=== PATIENT | female | born 1985 ===

== ENCOUNTER 2016-05-25 06:05 | Day surgery (SDC) | payer MEDICAID ==
[2016-05-25 06:44] VITALS: O2SAT 100
[2016-05-25 06:51] VITALS: BMI 25.9
[2016-05-25] MEDS ORDERED: Lidocaine 4% (Laryng-O-Jet) Kit MM ONE (07:31)
[2016-05-25] MEDS ORDERED: Succinylcholine 200 mg/10 ml Inj IV ONE (07:31)
[2016-05-25] MEDS ORDERED: Propofol 10 mg/ml Inj (20 ML) ONE (07:31)
[2016-05-25] MEDS ORDERED: Midazolam 2 MG/2 ML VIAL ONE (07:31)
[2016-05-25 07:41] LABS: BASO % 0.6 % (0.0-2.0); EOS # 0.1 K/uL (0.0-0.7); EOS % 1.6 % (0.0-4.0); HEMATOCRIT 32.4 % (34.0-47.0); LYMPH # 1.9 K/uL (1.0-4.3); LYMPH % 34.5 % (20.0-40.0); MEAN CELL VOLUME 83.6 fl (81.0-99.0); MEAN CORPUSCULAR HEMOGLOBIN 27.3 pg (27.0-31.0); MEAN CORPUSCULAR HGB CONC 32.7 g/dL (33.0-37.0); MEAN PLATELET VOLUME 8.3 fl (7.2-11.7); MONO # 0.4 K/uL (0.0-0.8); MONO % 7.3 % (0.0-10.0); RED CELL DISTRIBUTION WIDTH 14.3 % (11.5-14.5); WHITE BLOOD COUNT 5.4 K/uL (4.8-10.8)
[2016-05-25] MEDS ORDERED: Lactated Ringer's 1,000 ML IV ONE ×2 (08:53→09:11)
[2016-05-25] MEDS ORDERED: Dexamethasone 4 mg/1 ml ONE (08:56)
[2016-05-25] MEDS ORDERED: HYDROmorphone 0.5 mg/0.5 ml ISec IVP PRN (09:29)
--- NOTE | 2016-05-25 09:29 | PCM.SURG1 ---
Surgeon's Initial Post Op Note - Surgeon's Notes Surgeon: Dr Stauffer Senior Office Assistant: None Type of Anesthesia: General Endo Anesthesia Administered By: Dr John ESPARZA Pre-Operative Diagnosis: Missed Operative Findings: 9-10wk sized retroverted uterus sounded to a deapth of 8cm. Some amount of products of conception suctioned and currected from the endometrial cavity. IVFluids - 500mls. EBL - 100mls. Urine output - 50mls Post-Operative Diagnosis: Same as preop diagnosis Operation Performed: Suction D and C Specimen/Specimens Removed: Products of conception Estimated Blood Loss: EBL {In ML}: 100 Blood Products Given: N/A Post-Op Condition: Good Date of Surgery/Procedure: 05/25/16 Time of Surgery/Procedure: 09:30
--- NOTE | 2016-05-25 09:34 | CP.SDSHP ---
Same Day Surgery H & P - Allergies Allergies: Allergies No Known Allergies Allergy (Verified 04/07/16 10:05) - Physical Exam Vital Signs: Vital Signs 05/25/16 05/25/16 06:42 06:46 Temperature 98.9 F Pulse Rate 87 87 Respiratory 18 Rate Blood Pressure 120/74 O2 Sat by Pulse 100 Oximetry Short Stay Discharge - Short Stay Discharge Admitting Diagnosis/Reason for Visit: Missed / S/P Suction D and C Disposition: HOME/ ROUTINE Follow-up: F/U at the [facility] in 2 weeks Additional Instructions (Diet, Activity): Regular diet and activity Progress Note/Discharge Note with Instructions: 30yo female s/p Suction D and C for missed Ab. Clinically stable.
[2016-05-25 11:13] VITALS: RESP 18; TEMP 98.5
[2016-05-25 12:08] VITALS: BP 117/72; PULSE 76
--- NOTE | 2016-05-27 08:17 | OP ---
PROCEDURE DATE: 05/25/2016 PREOPERATIVE DIAGNOSIS: A 30-year-old female with a missed . POSTOPERATIVE DIAGNOSIS: A 30-year-old female with a missed . PROCEDURES: Suction, dilatation and curettage. SURGEON: Dr. Stauffer. MANAGER LOCAL: No judicial assistant. TYPE OF ANESTHESIA: General endotracheal. ANESTHESIA ADMINISTERED BY: Dr. John Villatoro. FINDINGS: A 9-10 week size retroverted uterus which was sounded to a depth of 8 cm. Some amount of products of conception were suctioned and curetted from the endometrial cavity. INTRAVENOUS FLUID INTAKE: 500 mL. ESTIMATED BLOOD LOSS: 100 mL. URINE OUTPUT: 50 mL. SPECIMEN: The products of conception were sent for histopathology. COMPLICATIONS: There were no complications. DESCRIPTION OF PROCEDURE: After obtaining the informed consent, the patient was sent to the OR with IV running and Nunez's catheter placed. The patient was placed in a supine position on the OR table, and after adequate general anesthesia the patient was prepped and draped in a sterile fashion. The patient was placed in the dorsal lithotomy position and was prepped and draped in a sterile fashion. The patient was previously examined with the findings noted above. After prepping the patient, a we ighted speculum was put in the posterior vaginal wall and an L-shaped retractor was used to elevate [facility] anterior vaginal wall to expose the cervix. The anterior lip of the cervix was held with a single tooth tenaculum after which the uterus was sounded to a depth of 8 cm. The cervical canal was then dilated with Hegar's dilator to a dilatation of about 8 mm. Once this has been completed, a curved s uction cannula was introduced into the uterine cavity and suction was then applied. Suctioning of th e endometrial contents was performed by asserting rotary motion on the cannula within the uterine cav ity. This was performed until bubbles were observed in the cannula. The cannula was then taken out of the uterine cavity and sharp curettage using a curette was performed. Once this was being done, a n intravenous solution of Pitocin was set up to help contract the uterus and reduce bleeding. After curettage, the suction cannula was reintroduced into the endometrial cavity and suction applied again to ensure further suctioning of the endometrial cavity. Once the procedure was completed, all instr uments were taken from the vagina. The patient was replaced in the supine position and was sent to [facility] recovery room awake and in stable condition. All counts of instruments and gauze used were correc t x 3. The patient tolerated the procedure well. Edson Stauffer MD cc: [id number] TT: 05/27/2016 08:16:58 clif
== END 2016-05-25 12:34 | disposition home or self-care (01) ==
LOC: H.OPSURG 06:05
PROVIDERS: ATTEND Obstetrics & Gynecology
DX: O02.1 Missed abortion (principal)

== ENCOUNTER 2018-01-30 11:42 | Emergency (ER) | payer MEDICAID ==
[2018-01-30 11:56] VITALS: TEMP 98; O2SAT 100
[2018-01-30 11:57] VITALS: BMI 26.1
--- NOTE | 2018-01-30 12:45 | ED PDOC ---
HPI: Female Pain Time Seen by Provider: 01/30/18 12:16 Chief Complaint (Nursing): Abdominal Pain History Per: Patient Onset/Duration Of Symptoms: Days (2) Current Symptoms Are (Timing): Still Present Severity: Mild Quality Of Discomfort: Cramping Additional Complaint(s): Vaginal spotting assoc with lower abd cramping x 2 days. H/o ectopic LMP Nov Abnormal Vaginal Bleeding: Yes Past Medical History Vital Signs: Last Vital Signs Temp 98 F 01/30/18 11:56 Pulse 104 H 01/30/18 11:56 Resp BP 149/87 01/30/18 11:56 Pulse Ox 100 01/30/18 11:56 - Medical History PMH: Gastritis (diagnosed 20 years ago when living in the [place]) - Surgical History Surgical History: Endoscopy Other surgeries: Ectopic - Family History Family History: States: Unknown Family Hx - Home Medications Home Medications: Ambulatory Orders Medication Instructions Recorded Acetaminophen [Non-Aspirin Pain 500 mg PO PRN PRN 05/25/16 Relief] - Allergies Allergies/Adverse Reactions: Allergies Allergy/AdvReac Type Severity Reaction Status Date / Time No Known Allergies Allergy Verified 04/07/16 10:05 Review of Systems Constitutional: Negative for: Fever Gastrointestinal: Positive for: Abdominal Pain Genitourinary Female: Positive for: Vaginal Bleeding Physical Exam - Physical Exam Appears: Positive for: Non-toxic, No Acute Distress Skin: Positive for: Normal Color, Warm, DRY Gastrointestinal/Abdominal: Positive for: Bowel Sounds, Soft. Negative for: Tenderness Pelvic Exam: Positive for: External Exam Normal, Blood (scant in vault). Negative for: Mass, Tender Adnexa, Tender Uterus - Laboratory Results Result Diagrams: 01/30/18 12:48 01/30/18 12:48 - ECG O2 Sat by Pulse Oximetry: 100 Disposition - Clinical Impression Clinical Impression: Threatened miscarriage - Patient ED Disposition Is Patient to be Admitted: No Counseled Patient/Family Regarding: Studies Performed, Diagnosis, Need For Followup - Disposition Referrals: [facility] [Outside] Disposition: Routine/Home Disposition Time: 14:46 Condition: FAIR Instructions: Threatened Miscarriage Forms: [facility] ([place]) Print Language: MOROCCAN
[2018-01-30 13:00] LABS: BASO # 0.1 K/uL (0.0-0.2); BASO % 0.6 % (0.0-2.0); EOS % 0.5 % (0.0-4.0); HEMOGLOBIN 12.3 g/dL (12.0-16.0); LYMPH # 1.8 K/uL (1.0-4.3); LYMPH % 19.3 % (20.0-40.0); MEAN CELL VOLUME 86.4 fl (81.0-99.0); MEAN CORPUSCULAR HEMOGLOBIN 27.5 pg (27.0-31.0); MEAN CORPUSCULAR HGB CONC 31.8 g/dL (33.0-37.0); MEAN PLATELET VOLUME 8.6 fl (7.2-11.7); MONO # 0.7 K/uL (0.0-0.8); MONO % 7.1 % (0.0-10.0); NEUT # 6.7 K/uL (1.8-7.0); NEUT % 72.5 % (50.0-75.0); NRBC % 0.1 % (0.0-0.0); RBC 4.49 Mil/uL (3.80-5.20); RED CELL DISTRIBUTION WIDTH 14.2 % (11.5-14.5); WHITE BLOOD COUNT 9.3 K/uL (4.8-10.8)
[2018-01-30 13:16] LABS: ALB/GLOB RATIO 1.2 (1.0-2.1); ALBUMIN 4.4 g/dL (3.5-5.0); ALT/SGPT 21 U/L (9-52); AST/SGOT 27 U/L (14-36); BLOOD UREA NITROGEN 9 mg/dl (7-17); GFR NON-AFRICAN AMERICAN > 60
--- NOTE | 2018-01-30 14:49 | US ---
Date of service: 01/30/2018 PROCEDURE: OB Pelvic Ultrasound HISTORY: r/o ectopic COMPARISON: None available. FINDINGS: UTERUS: Single Live intrauterine gestation. CRL measures 0.44 cm equivalent to 6 weeks and 1 day of gestational age. Gestational sac diameter measures 1.72 cm equivalent to 6 weeks and 0 day of gestational age. age (Ultrasound estimated): 6 weeks and 1 day Date of delivery (Ultrasound estimated) : Heart rate: 94 bpm. Hoa-gestational hemorrhage: None. Uterus measures 8.2 x 5.6 x 5.1 cm. No mass CERVIX: Long and closed. No cervical abnormality seen. RIGHT OVARY: Measures 2.6 x 1.7 x 1.9 cm. No mass. Normal flow. LEFT OVARY: Measures 2.9 x 2.5 x 2.3 cm. No mass. Normal flow. There is a 2.0 x 1.6 x 1.5 cm corpus luteum cyst. FREE FLUID: None. OTHER FINDINGS: None. IMPRESSION: Single live intrauterine gestation with mean gestational age of 6 weeks and 1 day. The expected date of delivery by ultrasound is 09/24/2018. The ultrasound dates correspond with the clinical dates. heart rate is 94 beats per minute. Clinical follow-up is advised
[2018-01-30 15:06] VITALS: BP 140/82; PULSE 90; RESP 18
== END 2018-01-30 15:00 | disposition home or self-care (01) ==
LOC: H.ER 11:42
DX: O20.0 Threatened abortion (principal); Z3A.01 Less than 8 weeks gestation of pregnancy